=== PATIENT | female | born 1985 | race Caucasian/White ===

== ENCOUNTER → 2016-12-12 | Day surgery (SDC) | payer OTHER ==
[2016-12-07 08:30] VITALS: Ht 162.6 cm; Wt 78.6 kg
[~2016-12-12] VITALS: Ht 162.6 cm; Wt 78.6 kg
[~2016-12-12] MED LIST: LIDOCAINE HCL 2% 2 ML VIAL (20MG/ML) ONE; LORA-741 PO; PANT40TA PO; PROPOFOL IV EMULSION 10 MG/ML 20 ML VIAL IV ONE; RANI300T2 PO; SODIUM CHLORIDE 0.9% 500ML 500 ML IV ONE
--- NOTE | 2016-12-12 12:56 | Endo History and Physical ---
History & Physical Date of Service: December 12, 2016. Chief Complaint: reflux w/Leon Referring Physician: Elizabeth Elmore PA-C History of Present Illness reflux symptoms despite PPI and H2RA Past Surgical History Hx Cardiac Surgery: No Hx Internal Defibrillator: No Hx Pacemaker: No Hx Abdominal Surgery: Yes (TUBAL LIGATION) Hx of Implantable Prosthesis: No Hx Post-Op Nausea and Vomiting: No Hx Cancer Surgery: No Hx Thoracic Surgery: No Hx Orthopedic: Yes (LT/RT CTR) Hx Urinary Tract Surgery: No Family History Colon CA, Polyp Social History Smoking Status: Never Smoker Hx Substance Use: No Hx Alcohol Use: No Allergies Coded Allergies: Penicillins (Verified Allergy, Unknown, HIVES, 12/12/16) Uncoded Allergies: ICE (Allergy, Unknown, HIVES, 12/07/16) Current Medications Reported Home Medications Medications Dose Route/Sig Max Daily Dose Days Date Category Ativan (Lorazepam) 0.5 Mg Tab 0.5 Mg PO BID PRN 12/07/16 Reported Zantac (Ranitidine HCl) 300 Mg Tab 300 Mg PO BID 12/07/16 Reported Protonix (Pantoprazole Sodium) 40 Mg Tab 40 Mg PO BID 12/07/16 Reported Vital Signs Weight (Kilograms): 78.64 Height (Feet): 5 Height (Inches): 4 Date Time Temp Pulse Resp B/P Pulse Ox O2 Delivery O2 Flow Rate FiO2 12/12/16 12:07 37.0 92 18 127/89 99 Room Air Physical Exam General Appearance: WD/WN, no apparent distress Assessment and Plan EGD with LEON today
--- NOTE | 2016-12-12 12:57 | Discharge Instructions ---
Endoscopy Patient Instructions Date / Procedure(s) Performed December 12, 2016. EGD Allergy Information Coded Allergies: Penicillins (Verified Allergy, Unknown, HIVES, 12/12/16) Uncoded Allergies: ICE (Allergy, Unknown, HIVES, 12/07/16) Discharge Date / Findings December 12, 2016. normal EGD; LEON placed Medication Instructions Restart Stopped Medication(s): OK to resume medications as above Provider Instructions Activity Restrictions - No exercising or heavy lifting for 24 hours. - Do not drink alcohol the day of the procedure. - Do not drive a car or operate machinery until the day after the procedure. - Do not make any important decisions or sign important papers in 24 hours after the procedure. Following Day: - Return to full activity which may include returning to work/school. Diet Start your diet with liquids and light foods (jello, soup, juice, toast). Then eat your usual diet if not nauseated. Treatment For Common After Affects For mild abdominal pain, bloating, or excessive gas: - Rest - Eat lightly - Lie on right side Follow-Up Information Follow-up with Elizabeth Elmore PA-C as scheduled Anesthesia Information What You Should Know You have had a procedure that required some medicine to reduce anxiety and discomfort. This treatment is called moderate sedation. After receiving the treatment, you may be sleepy, but you will be able to breathe on your own. The effects of the treatment may last for several hours. Follow these instructions along with Activity/Diet recommendations noted above: * Do NOT do anything where dizziness or clumsiness would be dangerous. * Rest quietly at home today, then you can be up and about tomorrow. * Have a responsible person stay with you the rest of today. * You may have had an I.V. today. If so, you may take the dressing off later today. Recommendations Call your doctor if: * Trouble breathing * Continuous vomiting for more than 24 hours * Temperature above 101 degrees * Severe abdominal pain or bloating * Pain not relieved by pain medicine ordered * There is increased drainage or redness from any incision * A large amount of rectal bleeding greater than 2-3 tablespoons. (If you had a polyp/s removed or have hemorrhoids, a small amount of blood - from the rectum is to be expected.) * You have any unanswered questions or concerns. IN THE EVENT OF A SERIOUS EMERGENCY, GO TO THE NEAREST EMERGENCY ROOM Your discharge instructions were prepared by provider Shamika Hoffmann. Patient Instructions Signature Page Bridget Cardozo Patient (or Guardian) Signature/Date: I have read and understand the instructions given to me by my caregivers. Caregiver/RN/Doctor Signature/Date: The above-named patient and/or guardian has received patient instructions on this date. + Original Patient Signature Page (only) stays with chart. Please make copy for patient.
--- NOTE | 2016-12-12 13:00 | GI REPORT ---
Procedure Date: 12/12/2016 12:38 PM Procedure: Upper GI endoscopy Indications: Heartburn, Esophageal reflux symptoms that persist despite appropriate therapy, Failure to respond to medical treatment Medicines: Propofol per Anesthesia Complications: No immediate complications. Estimated blood loss: None. Estimated Blood Loss: Estimated blood loss: none. Procedure: Pre-Anesthesia Assessment: - Prior to the procedure, a History and Physical was performed, and patient medications, allergies and sensitivities were reviewed. The patient's tolerance of previous anesthesia was reviewed. - The risks and benefits of the procedure and the sedation options and risks were discussed with the patient. All questions were answered and informed consent was obtained. - Patient identification and proposed procedure were verified prior to the procedure by the physician and the nurse. The procedure was verified in the pre-procedure area in the procedure room. - Mental Status Examination: alert and oriented. Airway Examination: normal oropharyngeal airway and neck mobility. Respiratory Examination: clear to auscultation. CV Examination: normal. Abdominal Examination: bowel sounds present, abdomen soft and non-tender, no masses or organomegaly noted. - ASA Grade Assessment: II - A patient with mild systemic disease. After obtaining informed consent, the endoscope was passed under direct vision. Throughout the procedure, the patient's blood pressure, pulse, and oxygen saturations were monitored continuously. The scope was introduced through the mouth, and advanced to the second part of duodenum. The upper GI endoscopy was accomplished without difficulty. The patient tolerated the procedure well. Findings: The examined esophagus was normal. The LEON capsule with delivery system was introduced through the mouth and advanced into the esophagus, such that the LEON pH capsule was positioned 32 cm from the incisors, which was 6 cm proximal to the EG junction. Suction was applied to the well of the LEON pH capsule to suck in the adjacent mucosa of the esophagus using the external vacuum pump set at a minimum vacuum pressure of 550 mmHg for 60 seconds. The LEON pH capsule was then deployed by depressing the plunger on top of the handle to advance the locking pin into the mucosa, thereby attaching the capsule to the esophagus. The plunger was then rotated a quarter turn clockwise to release the capsule from the delivery system. The delivery system was then withdrawn. Endoscopy was utilized for probe placement and diagnostic evaluation. The stomach was normal. The examined duodenum was normal. Impression: - Normal esophagus. - Normal stomach. - Normal examined duodenum. - The LEON pH capsule was positioned 32 cm from the naris, which was 6 cm proximal to the EG junction. - No specimens collected. Recommendation: - Follow LEON instructions. Report to follow - Discharge patient to home. Shamika Hoffmann D.O. Shamika Hoffmann, 12/12/2016 12:59:48 PM This report has been signed electronically. Note Initiated On: 12/12/2016 12:38 PM I attest to the content of the Intraoperative Record and orders documented therein, exceptions below
[2016-12-12 13:25] VITALS: BP 106/72; PULSE 76; O2SAT 99
--- NOTE | 2016-12-12 13:31 | Anesthesiology Progress Note ---
Anesthesia Post Op Note Date & Time December 12, 2016 at 13:31 Vital Signs Pain Intensity: 0 Vital Signs Past 12 Hours Date Time Temp Pulse Resp B/P Pulse Ox O2 Delivery O2 Flow Rate FiO2 12/12/16 13:10 69 18 101/55 95 Room Air 12/12/16 12:55 74 18 88/46 94 Room Air 12/12/16 12:07 37.0 92 18 127/89 99 Room Air Notes Mental Status: alert / awake / arousable, participated in evaluation Pt Amnestic to Procedure: Yes Nausea / Vomiting: adequately controlled Pain: adequately controlled Airway Patency, RR, SpO2: stable & adequate BP & HR: stable & adequate Hydration State: stable & adequate Anesthetic Complications: no major complications apparent
== END | disposition home or self-care (01) ==
LOC: C.GI 11:44
PROVIDERS: ATTEND Internal Medicine
DX: K21.9 Gastro-esophageal reflux disease without esophagitis (principal)